=== PATIENT | male | born 1995 | race Caucasian/White ===

== ENCOUNTER 2016-10-09 08:19 | Emergency (ER) | payer OTHER, BC ==
[2016-10-09 08:23] VITALS: BP 151/93; PULSE 95; TEMP 98; BMI 26.6
[2016-10-09] MEDS ORDERED: IBUPROFEN 600 MG TABLET (FP) PO ONE (08:40)
[2016-10-09] MEDS ORDERED: DIPHTH,PERTUSS(ACELL),TET 0.5 ML DISP.SYRIN IM ONE (08:52)
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
== END 2016-10-09 09:30 | disposition home or self-care (01) ==
LOC: JERFT 08:19
PROC: 3E0234Z Introduction of Serum, Toxoid and Vaccine into Muscle, Percutaneous Approach (ICD-10-PCS; principal; 2016-10-09)
DX: S39.012A Strain of muscle, fascia and tendon of lower back, initial encounter (principal); Y04.2XXA Assault by strike against or bumped into by another person, initial encounter; Y93.89 Activity, other specified; Y92.238 Other place in hospital as the place of occurrence of the external cause; Y99.0 Civilian activity done for income or pay; Y07.9 Unspecified perpetrator of maltreatment and neglect
CPT/HCPCS: 90715; 99281-25

== ENCOUNTER → 2017-05-28 | Emergency (ER) | payer BC, OTHER | END | disposition home or self-care (01) | LOC: JER 22:56 | PROC: 3E0233Z Introduction of Anti-inflammatory into Muscle, Percutaneous Approach (ICD-10-PCS; principal; 2017-05-28) | DX: M54.5 Low back pain (principal) ==

== ENCOUNTER 2017-05-29 00:21 | Emergency (ER) | payer BC ==
[2017-05-29] MEDS ORDERED: KETOROLAC TROMETHAMINE 60 MG/2 ML VIAL IM ONE (00:23)
[2017-05-29] MEDS ORDERED: KETOROLAC TROMETHAMINE 60 MG/2 ML VIAL ONE (00:36)
[2017-05-29 00:52] VITALS: BP 140/79; PULSE 82; TEMP 98.5; BMI 26.6
[2017-05-29] MEDS ORDERED: CYCLOBENZAPRINE HCL 5 MG TABLET PO STA (01:17)
--- NOTE | 2017-05-29 01:17 | PDOC ---
History of Present Illness - General Chief Complaint: Pain, Acute Stated Complaint: LIFTING WEIGHTS LAST NIGHT BACK PAIN DOWN LEFT LEG Time Seen by Provider: 05/29/17 00:24 - History of Present Illness Initial Comments: 05/29/17 06:18 L sided lower back pain, gradual onset, began around noon today, worsened due to unchanged position (was sitting all day) now presents with severe L lower back pain, radiates to L knee, reports numbness to L lower back Now pain at rest, pain only with movement no f/c No change/ difficulty with urine/stool pmh: denies fhx: non-contrib ros: reviewed and otherwise negative o/e uncomfortable when moving no diaphoresis nonicteric neck nontender, nl jvp rrr cta abd nt no cvat L paraspinal LB tenderness no suprapubic fullness sensation intact to light tough throughout LEs nl motor strength in b/l LEs nl distal pulses a/p LBP with sciatica improved with nsaids in ED Past History - Past Medical History Allergies/Adverse Reactions: Allergies Allergy/AdvReac Type Severity Reaction Status Date / Time amoxicillin Allergy Verified 05/29/17 00:42 fruits Allergy Uncoded 10/09/16 08:23 Home Medications: Ambulatory Orders Cyclobenzaprine HCl [Flexeril -] 10 mg PO TID PRN #9 tablet 05/29/17 Ibuprofen 800 mg PO TID PRN #21 tablet 05/29/17 - Immunization History Td Vaccination: Yes Immunization Up to Date: Yes - Suicide/Smoking/Psychosocial Hx Smoking Status: No Smoking History: Never smoked Have you smoked in the past 12 months: No Number of Cigarettes Smoked Daily: 0 Cigars Per Day: 0 Hx Alcohol Use: No Drug/Substance Use Hx: No Substance Use Type: None Hx Substance Use Treatment: No ED Treatment Course - Medications Given in the ED: ED Medications Discontinued Medications Generic Name Dose Route Start Last Admin Trade Name Freq PRN Reason Stop Dose Admin Ketorolac Tromethamine 60 mg 05/29/17 00:23 05/29/17 00:42 Toradol Injection - IM 05/29/17 00:24 60 mg ONCE ONE Administration *DC/Admit/Observation/Transfer Diagnosis at time of Disposition: Low back pain Qualifiers: Chronicity: acute Back pain laterality: left Sciatica presence: without sciatica Qualified Code(s): M54.5 - Low back pain - Discharge Dispostion Disposition: HOME Condition at time of disposition: Stable - Prescriptions Prescriptions: Cyclobenzaprine HCl [Flexeril -] 10 mg PO TID PRN #9 tablet PRN Reason: Muscle Spasms Ibuprofen 800 mg PO TID PRN #21 tablet PRN Reason: Pain - Referrals - Patient Instructions Printed Discharge Instructions: DI for Low Back Pain - Post Discharge Activity
[2017-05-29] MEDS ORDERED: CYCLOBENZAPRINE HCL 10 MG TABLET (FP) ONE (01:18)
== END 2017-05-29 01:26 | disposition home or self-care (01) ==
LOC: FER 00:21
PROC: 3E0233Z Introduction of Anti-inflammatory into Muscle, Percutaneous Approach (ICD-10-PCS; principal; 2017-05-29)
DX: M54.5 Low back pain (principal)
CPT/HCPCS: 99281-25

== ENCOUNTER 2020-05-14 15:15 | Emergency (ER) | payer OTHER ==
[2020-05-14] MEDS ORDERED: IBUPROFEN 600 MG TABLET (FP) PO ONE ×2 (15:46→16:01)
[2020-05-14 17:08] VITALS: BP 159/104; PULSE 113; TEMP 99.9; BMI 29.5
== END 2020-05-14 17:09 | disposition home or self-care (01) ==
LOC: FER 15:15 → MERGE 15:15 → FER 17:09
DX: S60.511A Abrasion of right hand, initial encounter (principal); S80.01XA Contusion of right knee, initial encounter
CPT/HCPCS: 73130-TC-RT-FY; 73560-TC-RT-FY; 99284-25

== ENCOUNTER 2021-12-15 12:01 | Emergency (ER) | payer OTHER ==
[2021-12-15 12:24] VITALS: BP 122/77; PULSE 76; RESP 16; TEMP 97.2; BMI 27.3
[2021-12-15] MEDS ORDERED: IBUPROFEN 600 MG TABLET (FP) PO ONE ×2 (12:43→12:46)
== END 2021-12-15 13:14 | disposition home or self-care (01) ==
LOC: JERFT 12:01
DX: S97.101A Crushing injury of unspecified right toe(s), initial encounter (principal)
CPT/HCPCS: 73630-TC-RT-FY; 99284-25

== ENCOUNTER 2022-05-17 15:43 | Emergency (ER) | payer BC, OTHER ==
[2022-05-17 15:59] VITALS: BP 122/74; PULSE 89; RESP 20; TEMP 98; BMI 26.6
[2022-05-17] MEDS ORDERED: ACETAMINOPHEN 325 MG TABLET (FP) PO ONE (16:43)
[2022-05-17] MEDS ORDERED: ACETAMINOPHEN 325 MG TABLET (FP) ONE (16:56)
== END 2022-05-17 17:01 | disposition home or self-care (01) ==
LOC: FER 15:43
DX: S00.12XA Contusion of left eyelid and periocular area, initial encounter (principal); Y04.8XXA Assault by other bodily force, initial encounter
CPT/HCPCS: 70450-TC; 70486-TC; 99284-25

== ENCOUNTER 2022-10-15 12:31 | Emergency (ER) | payer OTHER ==
[2022-10-15 12:39] VITALS: BP 158/98; PULSE 68; RESP 18; TEMP 98.1; BMI 26.6
== END 2022-10-15 14:39 | disposition home or self-care (01) ==
LOC: JERFT 12:31 → JER 12:31 → JERFT 14:39
DX: M25.512 Pain in left shoulder (principal); R03.0 Elevated blood-pressure reading, without diagnosis of hypertension; S46.912A Strain of unspecified muscle, fascia and tendon at shoulder and upper arm level, left arm, initial encounter; W01.0XXA Fall on same level from slipping, tripping and stumbling without subsequent striking against object, initial encounter
CPT/HCPCS: 73030-TC-LT-FY; 99283-25